=== PATIENT | female | born 1980 | race Caucasian/White ===

== ENCOUNTER 2020-08-28 16:58 | Emergency (ER) | payer OTHER ==
[~2020-08-28] VITALS: Ht 154.9 cm; Wt 59.0 kg
[~2020-08-28 16:58] MED LIST: AMOX-CLAV 875-125 MG TABLET
[2020-08-28 17:01] VITALS: BP 103/66
[2020-08-28 17:47] VITALS: BP 103/66
== END 2020-08-28 17:45 | disposition home or self-care (01) ==
LOC: MED 16:58
DX: K59.09 Other constipation (principal); Z79.899 Other long term (current) drug therapy
CPT/HCPCS: 81002; 81025; 99282

== ENCOUNTER 2022-09-25 13:00 | Emergency (ER) | payer OTHER ==
[~2022-09-25] VITALS: Ht 157.5 cm; Wt 56.7 kg
[2022-09-25 13:17] VITALS: BP 99/64
[2022-09-25] MEDS ORDERED: ACETAMINOPHEN 325 MG TAB PO ONE (13:25)
[2022-09-25] MEDS ORDERED: ACETAMINOPHEN EXTRA STRENGTH 500 MG TAB ONE (13:29)
[2022-09-25 14:21] LABS: RSV NEGATIVE (NEGATIVE)
[2022-09-25] MEDS ORDERED: APAP-896 PO (15:20)
[2022-09-25] MEDS ORDERED: BENZ-300 PO (15:20)
[2022-09-25] MEDS ORDERED: NACL 0.9% 1,000 ML IV ONE (15:30)
[2022-09-25 16:00] LABS: BASOPHILS % (AUTO) 0.5 % (0.0-2.0); EOSINOPHILS % (AUTO) 0.3 % (0.0-4.0); HEMATOCRIT 29.2 % (36-48); HEMOGLOBIN 9.1 g/dL (12.0-16.0); LYMPHOCYTES # (AUTO) 0.2 K/uL (2.5-16.5); LYMPHOCYTES % (AUTO) 2.9 % (20.5-51.1); MEAN CORPUSCULAR HEMOGLOBIN 21 pg (27-31); MEAN CORPUSCULAR HGB CONC 31 g/dL (33-37); MEAN CORPUSCULAR VOLUME 68.9 fL (80-94); MONOCYTES # (AUTO) 0.6 K/uL (0.8-1.0); NEUTROPHILS # (AUTO) 5.6 K/uL (1.8-7.7); NEUTROPHILS % (AUTO) 87.3 % (42.2-75.2); PLATELET COUNT (AUTO) 349 K/uL (140-450); RED BLOOD CELL COUNT(AUTO) 4.24 MIL/uL (4.20-5.40); RED CELL DISTRIBUTION WIDTH 18.8 % (11.6-13.7); WHITE BLOOD COUNT (AUTO) 6.4 K/uL (4.8-10.8)
[2022-09-25 16:25] LABS: ALBUMIN 3.8 g/dL (3.4-5.0); ANION GAP 11.8 (8-16); CARBON DIOXIDE 27.5 mmol/L (21-32); CREATININE 0.9 mg/dL (0.6-1.3); POTASSIUM 4.3 mmol/L (3.5-5.1); TOTAL BILIRUBIN 0.3 mg/dL (0.0-1.0)
[2022-09-25] MEDS ORDERED: FERR325E14 PO (16:57)
[2022-09-25] MEDS ORDERED: ASCO500T95 PO (16:57)
[2022-09-25] MEDS ORDERED: DOCU-300 PO (16:57)
[2022-09-25 17:03] VITALS: BP 121/80
== END 2022-09-25 17:44 | disposition home or self-care (01) ==
LOC: MED 13:00
DX: R50.9 Fever, unspecified (principal); Z20.822 Contact with and (suspected) exposure to COVID-19; M79.10 Myalgia, unspecified site; J02.9 Acute pharyngitis, unspecified; R51.9 Headache, unspecified; R05.9 Cough, unspecified; R09.89 Other specified symptoms and signs involving the circulatory and respiratory systems; J34.89 Other specified disorders of nose and nasal sinuses; D64.9 Anemia, unspecified; Z79.899 Other long term (current) drug therapy
CPT/HCPCS: 36415; 71046; 80053; 81002; 81025; 83605; 85025; 87081; 87420; 87426; 87804; 96361; 99284; J7030